=== PATIENT | male | born 1960 | race American Indian/Alaskan Native ===

== ENCOUNTER 2020-07-18 03:13 | Emergency (ER) | payer SELFPAY ==
[2020-07-18 06:05] VITALS: BP 108/81
[2020-07-18] MEDS ORDERED: SODIUM CHLORIDE 0.9% 1000 ML 1,000 ML IV ONE (06:25)
[2020-07-18] MEDS ORDERED: KETOROLAC 30 MG/1 ML INJ IV ONE (06:26)
--- NOTE | 2020-07-18 07:05 | Emergency Department Report ---
ED General Adult HPI - General Chief complaint: Extremity Injury, Lower Stated complaint: BACK PAIN/FAINTING Time Seen by Provider: 07/18/20 06:06 Source: patient Mode of arrival: Ambulatory Limitations: Physical Limitation - History of Present Illness Initial comments: Patient is a 60-year-old F [place] male history of surgery to his back sometime ago and homelessness who is presenting with 2 complaints. Patient states that he has had low back pain for several months that is progressively worsening. He does walk with a cane. He states he called paramedics try to get to [facility] where his doctor who performed his back surgery works. He denies any bowel bladder dysfunction or recent trauma. Additionally more concerning the patient states that he has passed out several times in the last 2 months. States once this month and twice last month. He says daily he is has some dizziness with standing. States his stools have been very dark for the last 2 days. Denies abdominal pain cough cold congestion fevers or chills. States he may have a remote history of ulcers. Severity scale (0 -10): 10 - Related Data Previous Rx's Medication Instructions Recorded Last Taken Type Ketorolac [Toradol] 10 mg PO Q6H PRN #12 tablet 07/18/20 Unknown Rx methOCARBAMOL [Robaxin TAB] 500 mg PO Q6H PRN #14 tablet 07/18/20 Unknown Rx Allergies Allergy/AdvReac Type Severity Reaction Status Date / Time No Known Allergies Allergy Verified 07/18/20 03:24 ED Review of Systems ROS: Stated complaint: BACK PAIN/FAINTING Other details as noted in HPI Comment: All other systems reviewed and negative ED Past Medical Hx - Past Medical History Previous Medical History?: No - Surgical History Past Surgical History?: Yes Additional Surgical History: surgry to back - Social History Smoking Status: Current Every Day Smoker Substance Use Type: Alcohol - Medications Home Medications: Home Medications Medication Instructions Recorded Confirmed Last Taken Type Ketorolac [Toradol] 10 mg PO Q6H PRN #12 tablet 07/18/20 Unknown Rx methOCARBAMOL [Robaxin TAB] 500 mg PO Q6H PRN #14 tablet 07/18/20 Unknown Rx ED Physical Exam - General Limitations: Physical Limitation General appearance: alert, in no apparent distress - Head Head exam: Present: atraumatic, normocephalic - Eye Eye exam: Present: normal appearance - ENT ENT exam: Present: mucous membranes moist - Neck Neck exam: Present: normal inspection - Respiratory Respiratory exam: Present: normal lung sounds bilaterally. Absent: respiratory distress, wheezes, rales, rhonchi - Cardiovascular Cardiovascular Exam: Present: regular rate, normal rhythm, normal heart sounds. Absent: systolic murmur, diastolic murmur, rubs, gallop - GI/Abdominal GI/Abdominal exam: Present: soft, normal bowel sounds. Absent: distended, tenderness, guarding, rebound - Rectal Rectal exam: Present: deferred - Extremities Exam Extremities exam: Present: normal inspection - Back Exam Back exam: Present: normal inspection - Neurological Exam Neurological exam: Present: alert, oriented X3 - Psychiatric Psychiatric exam: Present: normal affect, normal mood - Skin Skin exam: Present: warm, dry, intact, normal color. Absent: rash ED Course Vital Signs 07/18/20 07/18/20 03:24 05:00 Temperature 98.1 F Pulse Rate 88 79 Respiratory 18 16 Rate Blood Pressure 105/67 Blood Pressure 108/81 [Left] O2 Sat by Pulse 94 94 Oximetry ED Medical Decision Making - Lab Data Result diagrams: 07/18/20 06:54 07/18/20 06:54 - Medical Decision Making Patient's laboratory studies are within normal limits. No discernible cause of the patient's syncope was found during this visit. LINDY globin was adequate. Patient may have some drops on his blood glucose potentially causing his syncopal episodes. Will be referred for primary care. patient to be discharged home. Given outpatient referral for his chronic back pain. Critical care attestation.: If time is entered above; I have spent that time in minutes in the direct care of this critically ill patient, excluding procedure time. ED Disposition Clinical Impression: Chronic back pain Qualifiers: Back pain location: low back pain Back pain laterality: unspecified Sciatica presence: without sciatica Qualified Code(s): M54.5 - Low back pain; G89.29 - Other chronic pain Syncope Qualifiers: Syncope type: unspecified Qualified Code(s): R55 - Syncope and collapse Disposition: - TO HOME OR SELFCARE Is pt being admited?: No Does the pt Need Aspirin: No Condition: Stable Instructions: Syncope (ED), Chronic Back Pain, [id number], Syncope, [id number] Referrals: EMMA GUERRA II, MD [Staff Physician] - 3-5 Days ARIANA GRAYSON MD [Staff Physician] - 3-5 Days Time of Disposition: 08:35
[2020-07-18 07:48] LABS: Basophils % (Auto) 0.7 % (0.0-1.8); Eosinophils # (Auto) 0.1 K/mm3 (0.0-0.4); Eosinophils % (Auto) 1.6 % (0.0-4.3); Hematocrit 41.1 % (35.5-45.6); Hemoglobin 13.8 gm/dl (11.8-15.2); Lymphocytes # (Auto) 1.7 K/mm3 (1.2-5.4); Lymphocytes % (Auto) 28.7 % (13.4-35.0); Mean Corpuscular HGB Conc 34 % (32-34); Mean Corpuscular Volume 98 fl (84-94); Monocytes # (Auto) 0.3 K/mm3 (0.0-0.8); Monocytes % (Auto) 5.7 % (0.0-7.3); Platelet Count 233 K/mm3 (140-440); Red Blood Count 4.18 M/mm3 (3.65-5.03); Red Cell Distribution Width 12.4 % (13.2-15.2)
[2020-07-18 08:06] LABS: BUN/Creatinine Ratio 13; Blood Urea Nitrogen 10 mg/dL (9-20); Calcium 9.4 mg/dL (8.4-10.2); Hemolysis Index 20
== END 2020-07-18 09:22 | disposition home or self-care (01) ==
LOC: ED 03:13
DX: M54.5 Low back pain (principal); G89.29 Other chronic pain; R55 Syncope and collapse; F17.200 Nicotine dependence, unspecified, uncomplicated; Z79.899 Other long term (current) drug therapy
CPT/HCPCS: 36415; 80048; 85025; 96361; 96374; 99284; J1885; J7030